=== PATIENT | male | born 1980 | race Caucasian/White ===

== ENCOUNTER 2024-07-04 20:47 | Emergency (ER) | payer OTHER, SELFPAY ==
[2024-07-04 20:52] VITALS: BP 145/83; PULSE 101; TEMP 36.7; O2SAT 97; BMI 29.5
--- NOTE | 2024-07-04 20:58 | ED.SKABFB1 ---
HPI - Skin/Abscess/Foreign Bdy General Chief complaint: Skin/Abscess/Foreign Body Stated complaint: Laceration Time Seen by Provider: 07/04/24 20:56 Source: patient Mode of arrival: walk-in Limitations: no limitations History of Present Illness HPI narrative: 43 year old male presents to the ED for a laceration to his right index finger. He accidentally cut the digit on a nail while trying to hand a calendar. Denies fever, chills, weakness, N/T. His tetanus status is up to date. Related Data Home Medications ?Medication ?Instructions ?Recorded ?Confirmed No Known Home Medications 07/04/24 07/04/24 Allergies Allergy/AdvReac Type Severity Reaction Status Date / Time No Known Drug Allergies Allergy Verified 07/04/24 20:54 Review of Systems ROS Constitutional Denies: fever or chills Cardiovascular Denies: chest pain Respiratory Denies: shortness of breath Integumentary/Breast Reports: other (laceration) Neurological Denies: numbness in extremities or weakness in extremities Exam Constitutional Vital Signs, click to edit/add: Last Vital Signs Temp 98.0 F 07/04/24 20:52 Pulse 101 H 07/04/24 20:52 Resp 18 07/04/24 20:52 BP 145/83 H 07/04/24 20:52 Pulse Ox 97 07/04/24 20:52 O2 Del Method Room Air 07/04/24 20:52 Common normals: no apparent distress and oriented x3 Eye Common normals: conjunctivae normal Chest Chest: symmetrical chest wall rise Respiratory Common normals: normal respiratory effort Effort & inspection: able to speak in complete sentences Cardio Common normals: regular rate Peripheral pulses: radial pulses present Extremity Other: 1.5 cm laceration to right index finger on anterior surface. Sutures indicated. Between PIP and DIP joints. No swelling or deformity noted. Full ROM to the digit. Distal sensation intact. Cap refill <3 sec. Wound appears superficial. Course Vital Signs Vital signs: Vital Signs Temperature 98.0 F 07/04/24 20:52 Pulse Rate 101 H 07/04/24 20:52 Respiratory Rate 18 07/04/24 20:52 Blood Pressure 145/83 H 07/04/24 20:52 Pulse Oximetry 97 07/04/24 20:52 Oxygen Delivery Method Room Air 07/04/24 20:52 Temperature 98.0 F 07/04/24 20:52 Pulse Rate 101 H 07/04/24 20:52 Respiratory Rate 18 07/04/24 20:52 Blood Pressure 145/83 H 07/04/24 20:52 Pulse Oximetry 97 07/04/24 20:52 Oxygen Delivery Method Room Air 07/04/24 20:52 MDM - Skin/Abscess/Foreign Bdy MDM Narrative Medical decision making narrative: His wound was cleansed. Sutures were placed and a dressing applied. A finger splint was applied. The application was checked and was appropriate; the RUE remained NVI. Pt tolerated the procedure well. Follow up with pcp for a recheck, further evaluation and treatment. Suture removal in 10-14 days. Discharge Plan Discharge Stand Alone Forms: Work/School Release, Portal Instructions Chief Complaint: Skin/Abscess/Foreign Body Clinical Impression: Finger laceration Patient Disposition: Home, Self-Care Time of Disposition Decision: 21:32 Condition: Good Mode of Transportation: Private Vehicle Prescriptions / Home Meds: No Action No Known Home Medications Print Language: Kinyarwanda Instructions: Finger Laceration (ED) Additional Instructions: The stitches will need to be removed in 10-14 days. You can return to the ER for removal. Referrals: KERA JOHNSON [Primary Care Provider] - 1 week Procedures ED Laceration Laceration Laceration 1: Site: upper extremity (Right index finger) Size (cm): 1.5 Description: linear Anesthetic used: lidocaine 1% Anesthesia technique: nerve block Pre-repair: irrigated extensively and deep structures intact Skin layer closed with: other (Nylon) Size (cm): 4-0 Number of sutures: 5 Technique: simple, interrupted
[2024-07-04] MEDS: LIDOCAINE HCL 1% 100 MG/10 ML MDV INJ (21:10)
[2024-07-04 21:45] VITALS: BP 140/87; PULSE 88; O2SAT 98
== END 2024-07-04 21:45 | disposition home or self-care (01) ==
PROVIDERS: Emergency Provider Emergency Medicine; PCP Family Medicine
DX: S61.210A Laceration without foreign body of right index finger without damage to nail, initial encounter (principal); W45.0XXA Nail entering through skin, initial encounter
CPT/HCPCS: 12001; 99282